=== PATIENT | female | born 1990 | race Native Hawaiian/Other Pacific Islander ===

== ENCOUNTER 2018-09-04 23:30 | Inpatient (IN) | payer MEDICAID, SELFPAY ==
[2018-09-05 00:06] VITALS: BMI 29.7
--- NOTE | 2018-09-05 00:51 | OBADHP ---
Datetime: 09/05/2018 00:46 Admit Comment, IP Provider: 28-year-old presents complaining of gush of fluid at approximately 10:30 PM. Eyes any vaginal bleeding. Patient reports occasional contractions. Patient reports good f etal movement. Past medical history denies Past surgical history denies Medications vitamins Obstetrical history No known drug allergies Social history denies tobacco, drugs, alcohol Physical exam: Refer to physical exam findings Assessment: Spontaneous rupture of membranes, 39 weeks gestational age, , GBS negative, heart iván ng category 1 Plan: Admit to labor and delivery for management of labor and delivery Continue observation at this time, consider Pitocin augmentation if indicated Discussed plan with patient all patient questions answered. Pelvic Type - PN: Adequate Extremities - PN: Normal Abdomen - PN: Normal Back - PN: Normal Breast - PN: Normal Lungs - PN: Normal Heart - PN: Normal Thyroid - PN: Normal Neurologic - PN: Normal HEENT - PN: Normal General - PN: Normal FHR - Baseline A Provider: 130s-140s Amniotic Fluid Color, Provider: Clear Membranes, Provider: Ruptured Contraction Comments Provider: occasional Comments, ACOG Physical Exam: EFW 7.5lbs Cephalic via exam Pool Provider: Positive IP Hx Assessment: The History has been Reviewed and is Current IP Chief Complaint: Suspected ruptured membranes NICHD Variability Prov Fetus A: Moderate 6-25bpm NICHD Accel Fetus A IP Provider: 15X15 FHR Category Provider Fetus A: Category I NICHD Decel Fetus A IP Provider: None Dilatation, Provider: 1-2 Effacement, Provider: 75 Station, Provider: -1 Genitourinary Exam: Normal DTRs - PN: Normal EGA AdmitDate IP: 39.0 IP Adm Impression: Term, intrauterine ; Ruptured Membranes IP Admit Plan: Admit to unit; Initiate labor protocol
[2018-09-05] MEDS ORDERED: Oxytocin 30 UNITS in Sodium Chloride 0.9% 500 ML IV ONE (00:53)
[2018-09-05] MEDS ORDERED: Lactated Ringer's 1,000 ML IV ONE (00:53)
[2018-09-05 01:21] VITALS: RESP 20; O2SAT 100
[2018-09-05 01:25] LABS: BASO % 0.3 % (0.0-2.0); EOS # 0.1 K/uL (0.0-0.7); EOS % 0.7 % (0.0-4.0); HEMOGLOBIN 13.9 g/dL (12.0-16.0); LYMPH # 2.4 K/uL (1.0-4.3); LYMPH % 22.7 % (20.0-40.0); MEAN CELL VOLUME 90.7 fl (81.0-99.0); MEAN CORPUSCULAR HEMOGLOBIN 30.6 pg (27.0-31.0); MEAN CORPUSCULAR HGB CONC 33.7 g/dL (33.0-37.0); MEAN PLATELET VOLUME 8.9 fl (7.2-11.7); MONO # 0.9 K/uL (0.0-0.8); MONO % 8.8 % (0.0-10.0); NEUT # 7.2 K/uL (1.8-7.0); NEUT % 67.5 % (50.0-75.0); RBC 4.56 Mil/uL (3.80-5.20); RED CELL DISTRIBUTION WIDTH 14.1 % (11.5-14.5); WHITE BLOOD COUNT 10.6 K/uL (4.8-10.8)
[2018-09-05] MEDS ORDERED: Fentanyl/Bupivacaine HCl 250 ML EPI ONE (06:15)
[2018-09-05] MEDS: Lactated Ringer's 1,000 ML IV SCH ×3 (06:41→16:40)
--- NOTE | 2018-09-05 09:49 | OBPN ---
Datetime: 09/05/2018 09:45 IP Progress Impression: Normal progression of labor IP Procedures: Sterile Vag Exam IP Progress Plan: Continue present management Contraction Comments Provider: q5-7min FHR - Baseline A Provider: 120s-130s IP Progress Note Comment: Patient comfortable status post epidural. heart tracing category 1. Plan to continue current management. Discussed plan with patient all patient questions answered. Vital Signs Provider: Reviewed; Within Normal Limits NICHD Accel Fetus A IP Provider: 15X15 FHR Category Provider Fetus A: Category I NICHD Variability Prov Fetus A: Moderate 6-25bpm Dilatation, Provider: 5 Effacement, Provider: 100 Station, Provider: 0 NICHD Decel Fetus A IP Provider: None Datetime: 09/05/2018 00:46 Pool Provider: Positive Membranes, Provider: Ruptured Amniotic Fluid Color, Provider: Clear
[2018-09-05] MEDS ORDERED: Oxytocin 30 UNIT 30 UNITS/500 ML BAG IV ONE ×2 (13:43→13:44)
[2018-09-05] MEDS: OXYTOCIN/0.9 % NS 20 UNIT/1,000 ML BAG IV SCH ×2 (22:00→23:31)
[2018-09-05] MEDS ORDERED: Benzocaine/Menthol SPRAY TOP PRN (23:29)
[2018-09-05] MEDS ORDERED: Oxycodone/Acetaminophen 5/325 mg Tab PO PRN (23:29)
[2018-09-06] MEDS ORDERED: Benzocaine/Menthol SPRAY TOP PRN (00:05)
[2018-09-06] MEDS ORDERED: Oxycodone/Acetaminophen 5/325 mg Tab PO PRN (00:05)
[2018-09-06 06:30] LABS: BASO % 0.2 % (0.0-2.0); EOS # 0.1 K/uL (0.0-0.7); EOS % 0.4 % (0.0-4.0); HEMOGLOBIN 11.7 g/dL (12.0-16.0); LYMPH # 2.5 K/uL (1.0-4.3); LYMPH % 15.2 % (20.0-40.0); MEAN CORPUSCULAR HEMOGLOBIN 30.4 pg (27.0-31.0); MEAN CORPUSCULAR HGB CONC 33.4 g/dL (33.0-37.0); MEAN PLATELET VOLUME 8.8 fl (7.2-11.7); MONO # 1.3 K/uL (0.0-0.8); MONO % 7.8 % (0.0-10.0); NEUT # 12.8 K/uL (1.8-7.0); NEUT % 76.4 % (50.0-75.0); NRBC % 0.1 % (0.0-0.0); RBC 3.84 Mil/uL (3.80-5.20); RED CELL DISTRIBUTION WIDTH 13.9 % (11.5-14.5); WHITE BLOOD COUNT 16.8 K/uL (4.8-10.8)
[2018-09-06] MEDS ORDERED: Influenza Vaccine 60 mcg/0.5 mL SYR (4YR UP) IM ONE (06:59)
--- NOTE | 2018-09-06 12:03 | OBPPN ---
Datetime: 09/06/2018 10:48 PP Pain Prov: Within normal limits PP Nausea Prov: Denies PP Flatus Prov: No PP BM Prov: No PP Breasts Prov: Not Done PP Heart Prov: Normal PP Lungs Prov: Normal PP Abdomen/Uterus Prov: Normal PP Lochia Prov: Normal PP Vulva/Perineum Prov: Normal PP CVA Tenderness Prov: Normal PP Comments Phys Exam Prov: see progress note PP Impression Prov: Normal progression PP Plan Prov: Continue present management PP Progress Note Prov: S: Patient seen this morning at bedside, she is S/P on 09/05/18@ 21: 33, on her PPD 1. Pt has no complaints today. Reports minimal abdominal pain controlled with ibuprofe n, she is tolerating regular diet w/o N/V, ambulating to bathroom without any difficulties, lochia is more than menses in volume, Breast feeding w/o difficulty and using formula as complementary, patien t state no bm/ or flatus yet. but was able to pass urine O: VS WNL PE GEN: NAD HEENT: EOMI, Mucous membrane moist. RESP: CTA b/l CV: RRR, no murmurs heard ABD: soft, mild tender, uterus firm @ umbilicus LE: No edema, Fred's negative. A/P 28 y/o s/p on 09/05/18, PPD1 with normal post- progression. -Encourage ambulation -Encourage -PNV 1 tab PO daily -Ibuprofen 600mg 1 tab Q6h prn for mild-mod pain -D/C on 09/07/18 Laz Lala, PGY [address] Peterson: I have evaluated the patient independently and I agree with the above IP PP Procedures: None Vital Signs Provider PP: Reviewed; Within Normal Limits
--- NOTE | 2018-09-07 11:44 | OBPPN ---
Datetime: 09/07/2018 06:06 PP Pain Prov: Within normal limits PP Nausea Prov: Denies PP Flatus Prov: Yes PP BM Prov: No PP Breasts Prov: Not Done PP Heart Prov: Normal PP Lungs Prov: Normal PP Abdomen/Uterus Prov: Normal PP Lochia Prov: Normal PP Extremities Prov: Normal PP Comments Phys Exam Prov: See progress Note PP Impression Prov: Normal progression PP Plan Prov: Discharge PP Progress Note Prov: S: 28 y/o S/P on 09/05/18@ 21:33 seen and examined this AM at bedsid e on her PPD2. Patient had an uneventful overnight, patient reports only very mild pelvic pain contro lled with pain medication, she is OOB and ambulating w/o dizziness, tolerating regular diet w/o N/V. Voiding frequent with no blood noted in urine, lochia is less than menses in volume and less than pre vious day, reports +flatus, no BM yet, w/o difficulties and using formula to complement . Denies fevers/chills, PAULA, CP, SOB, abdominal pain, or calf pain. O: VS WNL GEN: NAD HEENT: EOMI, Mucous membrane moist. RESP: CTA b/l CV: RRR, no murmurs heard ABD: soft, no distended, uterus firm @ umbilical level LE: No edema, Fred's negative. A/P 28 y/o s/p on 09/05/18, with normal post- progression, today on her PPD2. -Encourage ambulation -Encourage -PNV 1 tab PO daily -Ibuprofen 600mg 1 tab Q6h prn for mild-mod pain -D/C planning today Rickey Mora MD PGY1 OB Hospitalist on-call. Pt seen on rounds. Agree with note. D/C home f/u 6w Vital Signs Provider PP: Reviewed; Within Normal Limits
--- NOTE | 2018-09-07 11:46 | OBDCSUM ---
Datetime: 09/07/2018 07:53 Discharged to, Provider: Home Discharged to, Provider: Home Follow up at, Provider: [facility], [place] Disch Instr Activity: May be up to bathroom; May be up for meals Disch Instr Diet: Regular Discharge Diagnosis, Provider: Term Delivered Discharge Time: 09/07/2018 09:53 Follow up in weeks, Provider: 6w Follow up in weeks, Provider: 4-6 weeks Discharge Comment, Provider: EGA: 39wk Diagnosis: 28 y/o s/p on 09/05/18 @ 21:33. She delivered a baby boy, Wt [id number], 9/9 Summary: Patient is PPD2 with normal progression. No complications during post- period. Loch ia less than menses. Pt was able to pass gas and had BM, She is tolerating regular diet, Fundus firm below umbilicus, able to ambulate w/o any difficulties, voiding well, denies fever, chills, PAULA, SOB, N/V, calf pain. CBC post-: 11.7/34.9 Discharge Instructions: Continue and increase PNV 1 tab PO daily Ibuprofen 600mg 1 tab PO Q8h prn for mild-mod pain Instructions given to patient: If excessive bleeding, return of pain or increasing pain and/or fev er without relief from medication, go to ED PT was urged if feeling sad, mood swing, depression, neglect of baby, suicidal thoughts, homicidal thought should go to ED or call 911 for help Pt should go to her Primary care doctor if she has difficulty with F/U for visit in 1-2 days and post- visit in 4 to 6 weeks
[2018-09-07 19:04] VITALS: BP 116/70; PULSE 81; TEMP 98.4
== END 2018-09-07 14:45 | disposition home or self-care (01) | DRG 560 ==
LOC: H.EROB2 23:30 → H.L&D 09-05 00:53 → H.OB/GYN 09-05 23:58
PROVIDERS: ADMIT Obstetrics & Gynecology; ATTEND Obstetrics & Gynecology
PROC: 10E0XZZ Delivery of Products of Conception, External Approach (ICD-10-PCS; principal; 2018-09-05)
PROC: 3E02340 Introduction of Influenza Vaccine into Muscle, Percutaneous Approach (ICD-10-PCS; 2018-09-06)
DX: O80 Encounter for full-term uncomplicated delivery (principal); Z23 Encounter for immunization; Z37.0 Single live birth; Z3A.39 39 weeks gestation of pregnancy